=== PATIENT | male | born 1960 | race Caucasian/White ===

== ENCOUNTER → 2017-10-27 | Outpatient (CLI) | payer BC ==
[2017-10-28 17:04] LABS: t-TRANSGLUTAMINASE (tTG) IGA <2 U/mL (0-3)
== END | disposition home or self-care (01) ==
LOC: LAB 07:12 → US 07:30
PROVIDERS: Internal Medicine Gastroenterology
DX: R14.0 Abdominal distension (gaseous) (principal); Z79.899 Other long term (current) drug therapy